=== PATIENT | female | born 1965 | race Caucasian/White ===

== ENCOUNTER 2016-04-28 18:59 | Emergency (ER) | payer BC ==
--- NOTE | 2016-04-29 00:34 | ER ---
ADMIT: 04/28/2016 RM/LOC: ER [facility] MR#: [id number] 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 Saw Dr. Diaz also in January with negative echo and exercise stress test. States tonight while resting, she had palpitations, throat tightness. , who is a [employer] sales representative, noted fast irregular heartbeat. Reviewed his home EKG and possibly atrial fib as fast as 140. Exam remarkable for nontoxic, obese female, in no acute distress. EKG showed sinus tachycardia with left axis deviation, otherwise normal. Chest x-ray, unremarkable. Hemoglobin normal. Lactic 2.0. Normal TSH, free T4. Lipase normal. CRP mildly elevated at 0.48. D-dimer 0.2. CK less than 0.015. The patient was given Xanax 0.25 mg sublingual with improvement. Discharged with Xanax as needed. Follow up with Dr. Diaz or Dr. Madrigal this week for review of a 48-hour Holter that was placed in department. Jean Prieto MD/ shannan JOB #: [id number] CC: Jean Prieto MD, Attending Physician Sofi Madrigal MD, Family Physician MD Sofi An MD
== END 2016-04-28 21:00 | disposition home or self-care (01) ==
LOC: ER 18:59
DX: F41.9 Anxiety disorder, unspecified (principal); R00.2 Palpitations; Z90.710 Acquired absence of both cervix and uterus; Z79.899 Other long term (current) drug therapy